=== PATIENT | male | born 1975 | race American Indian/Alaskan Native ===

== ENCOUNTER 2017-08-09 14:45 | Emergency (ER) | payer BC ==
[2017-08-09 15:07] VITALS: BP 148/94
[2017-08-09] MEDS ORDERED: DECADRON IM ONE (16:57)
--- NOTE | 2017-08-09 17:02 | Emergency Department Report ---
Blank Doc - Documentation Documentation: Pt has cc of uvular swelling. Pt has had swelling since past 4 days, as pt stated he felt like " hawking " something, and when he looked in mirror, saw uvula hanging. Pt states he does not have h/a or neck pain or fever.Pt dneis difficulty swallowing or speaking. Pt denies fever. exam- pt is alert, no ptosis normal gaze. Supple neck s1 s2 nrr, equal bs b/l. no stridor or drooling, no peritonsilar abscess. no uvula asymetry. uvual appears enlogated. plan- abx qand steroids. Pt does have DM, but i feel risk of increased glucose level is out weighed by benefits of decadron 1 time dose. Pt briefed to call pmd if blood sugar is elevated, as pmd can instruct pt to increase glipizide, as pt recently saw pmd and had increase to oral hypoglycemics.
--- NOTE | 2017-08-09 18:36 | Emergency Department Report ---
ED ENT HPI - General Chief complaint: Dental/Oral Stated complaint: UVULA HANGING LOW Time Seen by Provider: 08/09/17 16:43 Source: patient Mode of arrival: Ambulatory Limitations: No Limitations - History of Present Illness -: Gradual Location: throat Severity: mild Associated Symptoms: denies: fever, cough, gum swelling, pain with swallowing, sore throat - Related Data Previous Rx's Medication Instructions Recorded Last Taken Type Clindamycin [Clindamycin CAP] 300 mg PO Q6H 7 Days #28 capsule 08/09/17 Unknown Rx Allergies Allergy/AdvReac Type Severity Reaction Status Date / Time No Known Allergies Allergy Unverified 08/09/17 15:04 ED Dental HPI - General Chief complaint: Dental/Oral Stated complaint: UVULA HANGING LOW Time Seen by Provider: 08/09/17 16:43 Source: patient Mode of arrival: Ambulatory Limitations: No Limitations - History of Present Illness MD complaint: tooth pain Severity: mild Quality: other (no pain, pt feels uvual on tounge, no striso or srooling or diff swallowing) Worsens with: chewing, hot/cold liquids Context- Dental: history of dental caries, poor dental care - Related Data Previous Rx's Medication Instructions Recorded Last Taken Type Clindamycin [Clindamycin CAP] 300 mg PO Q6H 7 Days #28 capsule 08/09/17 Unknown Rx Allergies Allergy/AdvReac Type Severity Reaction Status Date / Time No Known Allergies Allergy Unverified 08/09/17 15:04 ED Review of Systems ROS: Stated complaint: UVULA HANGING LOW Other details as noted in HPI Constitutional: denies: chills, fever Eyes: denies: eye pain, eye discharge, vision change ENT: denies: ear pain, throat pain, dental pain, hearing loss, congestion Respiratory: denies: cough, shortness of breath, wheezing Cardiovascular: denies: chest pain, palpitations Endocrine: no symptoms reported Gastrointestinal: denies: abdominal pain, nausea, diarrhea Genitourinary: denies: urgency, dysuria Musculoskeletal: denies: back pain, joint swelling, arthralgia Skin: denies: rash, lesions Neurological: denies: headache, weakness, paresthesias Psychiatric: denies: anxiety, depression Hematological/Lymphatic: denies: easy bleeding, easy bruising ED Past Medical Hx - Past Medical History Hx Diabetes: Yes - Surgical History Past Surgical History?: No - Social History Smoking Status: Never Smoker - Medications Home Medications: Home Medications Medication Instructions Recorded Confirmed Last Taken Type Clindamycin [Clindamycin CAP] 300 mg PO Q6H 7 Days #28 capsule 08/09/17 Unknown Rx ED Physical Exam - General Limitations: No Limitations General appearance: alert, in no apparent distress - Head Head exam: Present: atraumatic, normocephalic - Eye Eye exam: Present: normal appearance, PERRL, EOMI. Absent: periorbital swelling , periorbital tenderness - ENT ENT exam: Present: mucous membranes moist, TM's normal bilaterally, other (no signs or peritonsilar abscess, no stridor no drooling, normal voice, uvula is swollen and long, slightly edematous) - Neck Neck exam: Present: normal inspection - Respiratory Respiratory exam: Present: normal lung sounds bilaterally. Absent: respiratory distress - Cardiovascular Cardiovascular Exam: Present: regular rate, normal rhythm. Absent: systolic murmur, diastolic murmur, rubs, gallop - GI/Abdominal GI/Abdominal exam: Present: soft, normal bowel sounds - Rectal Rectal exam: Present: deferred - Extremities Exam Extremities exam: Present: normal inspection - Back Exam Back exam: Present: normal inspection - Neurological Exam Neurological exam: Present: alert, oriented X3, CN II-XII intact, normal gait, reflexes normal, other (nih=0, no ptosis no neglect or facial asym. ). Absent: motor sensory deficit - Psychiatric Psychiatric exam: Present: normal affect, normal mood - Skin Skin exam: Present: warm, dry, intact, normal color. Absent: rash ED Course Vital Signs 08/09/17 15:05 Temperature 99.4 F Pulse Rate 80 Respiratory 18 Rate Blood Pressure 148/94 O2 Sat by Pulse 97 Oximetry Critical Care Time: No Critical care attestation.: If time is entered above; I have spent that time in minutes in the direct care of this critically ill patient, excluding procedure time. ED Disposition Clinical Impression: Uvular edema Disposition: DC-01 TO HOME OR SELFCARE Is pt being admited?: No Does the pt Need Aspirin: No Condition: Stable Instructions: Uvulitis (ED) Additional Instructions: You must, without fail, arrange a prompt evaluation with an ear, nose and throat doctor. Prescriptions: Clindamycin [Clindamycin CAP] 300 mg PO Q6H 7 Days #28 capsule Referrals: BRITTON CARCAMO MD [Primary Care Provider] - 3-5 Days Time of Disposition: 18:35
== END 2017-08-09 18:46 | disposition home or self-care (01) ==
LOC: ED 14:45
DX: K13.79 Other lesions of oral mucosa (principal); E11.9 Type 2 diabetes mellitus without complications
CPT/HCPCS: 87116; 87430; 96372; 99283; J1100